=== PATIENT | female | born 1950 | race Caucasian/White ===

== ENCOUNTER → 2018-04-02 08:52 | Outpatient (CLI) | payer MEDICARE, OTHER ==
--- NOTE | 2018-04-08 11:18 | ST ---
PATIENT:ESVIN LEON MEDICAL RECORD: [id number] SEX: F LOCATION:[facility] ORDER #: ADMISSION DATE: 04/02/18 AGE OF PATIENT: 67 REFERRING PHYSICIAN: INTERPRETING PHYSICIAN: JOSE J PATEL MD DATE OF SERVICE: 04/02/2018 PROCEDURE: Nuclear stress test. INDICATION: Chest pain compatible with angina and shortness of breath. She was exercised on standard Umang protocol for 5 minutes, terminated due to achievement of maximum target heart rate response with 32 mCi of sestamibi injected at peak stress. Rest images were done previously with 11 mCi. FINDINGS: Gated SPECT reveals preserved ejection fraction at 72% with good wall motion and thickening and brightening throughout all segments. SPECT imaging Cardiolite was used as myocardial fusion agent. There is homogeneous uptake throughout all segments at rest and stress with no evidence of inducible ischemia or previous infarction. OVERALL IMPRESSION: 1. This is a normal nuclear stress test with no evidence of inducible ischemia or previous infarction. 2. Gated SPECT reveals a preserved ejection fraction at 72%. In this patient with ongoing symptomatology, the current scan does not suggest the presence of hemodynamically significant coronary artery disease. Evaluate noncardiac etiology of chest pain. TRANSINT:[id number] Voice Confirmation ID: [id number] DOCUMENT ID: [id number] JOSE J PATEL MD at 1118 CC: [id number] DICTATION DATE: 04/03/18 1230 AMMONIA BOX OPERATOR: 04/03/18 2357 DEP CLI 04/02/[address] [address]
== END | disposition home or self-care (01) ==
LOC: D.HCCARDIO 08:52
DX: R07.9 Chest pain, unspecified (principal)

== ENCOUNTER 2018-05-06 09:36 | Outpatient (CLI) | payer MEDICARE, OTHER ==
[~2018-05-06] VITALS: Ht 165.1 cm; Wt 63.6 kg
--- NOTE | ~2018-05-06 | HEMODYNAMI ---
PATIENT:ESVIN LEON MEDICAL RECORD: [id number] : 54 LOCATION:[facility] ADMISSION DATE: 05/06/18 Generatedon:05/06/201813:04 Patient name: ESVIN LEON Patient #: [id number] SSN: : 1950 Date of study: 05/06/2018 Page: Of Hemodynamic Procedure Report Patient Data Patient Demographics Procedure consent was obtained First Name: ESVIN Gender: Female Last Name: CAROLYN : 1950 Middle Initial: H Age: 67 year(s) Patient #: [id number] Race: Unknown Additional ID: [id number] Contact details [address]: [address] [place] [address] State: [place] City: [place] Zip code: [address] Past Medical History Allergies Allergen Reaction Date Comments Reported Other allergy 05/06/2018 Clindamycin Admission Admission Data Admission Date: 05/06/2018 Admission Time: 9:36 Procedure Procedure Types Cath Procedure Diagnostic Procedure LHC LHC w/Coronaries FFR/IVUS Intra-Coronary IVUS Initial Sedation Charges Moderate Sedation up to 15 minutes PCI Procedure Coronary Stent Coronary Stent Initial Procedure Description Procedure Date Procedure Date: 05/06/2018 Procedure Start Time: 12:49 Procedure End Time: 13:04 Procedure Staff Name Function Loy Acosta MD Performing Physician Aleshia Marie RT Monitor Gonzalo Daugherty RN Nurse Lynn Oswald RT Scrub Procedure Data Cath Procedure Fluoroscopy Diagnostic fluoroscopy Total fluoroscopy Time: 3 time: 3 min min Diagnostic fluoroscopy Total fluoroscopy dose: 305 dose: 305 mGy mGy Contrast Material Contrast Material Type Amount (ml) Isovue 300 74 Entry Location Entry Primary Successful Side Size Upsize Upsize Entry Closure Smith ccessful Closure Location (Fr) 1 (Fr) 2 (Fr) Remarks Device Remarks Radial Right 6 Fr Mechanical artery Short Compression Estimated blood loss: 10 ml Diagnostic catheters Device Type Used For End Catheter Placement DIAGNOSTIC Bob White 110cm 5 LV Angiography Fr catheter ([id number]) DIAGNOSTIC Bob White 110cm 5 Left Coronary Fr catheter (394155) Angiography DIAGNOSTIC Bob White 110cm 5 Right Coronary Fr catheter (589842) Angiography Procedure Complications No complications Procedure Medications Medication Administration Route Dosage 0.9% NaCl I.V. 100 ml/hr Oxygen etCO2 Nasal cannula 2 l/min Heparin Flush Bag added to field 2 bags (1000units/500ml NS) Lidocaine 2% added to field 20 Radial Cocktail added to field 1 syringe (Verapomil 2mg/Nitro 400mcg/Heparin 1500units) Zofran I.V. 4 mg Versed I.V. 2 mg Fentanyl I.V. 100 mcg Versed I.V. 2 mg Fentanyl I.V. 100 mcg Versed I.V. 1 mg Radial Cocktail I.A. 1 syringe (Verapomil 2mg/Nitro 400mcg/Heparin 1500units) Heparin Bolus I.V. 4000 units Integrilin (Bolus I.V. 5.6 ml 2mg/ml) Integrilin (Bolus wasted 4.4 ml 2mg/ml) Plavix P.O. 600 mg Hemodynamics Rest Heart Rate: 71 (bpm) Snapshots Pre Cath Intra NCS Post Cath Vital Signs Time Heart Resp SPO2 etCO2 NIBP (mmHg) Rhythm Pain Sedation Rate (ipm) (%) (mmHg) Status Level (bpm) 12:22:53 65 11 100 37.1 143/74(111) NSR 0 (11) 10(A) , No pain 12:27:05 67 29 98 34.1 131/72(90) NSR 0 (11) 10(A) , No pain 12:31:15 61 29 95 28.1 116/70(87) NSR 0 (11) 10(A) , No pain 12:35:19 59 58 96 31.8 121/66(82) NSR 0 (11) 10(A) , No pain 12:39:32 59 15 97 36.4 121/70(85) NSR 0 (11) 10(A) , No pain 12:43:40 59 14 96 42.5 116/60(79) NSR 0 (11) 10(A) , No pain 12:47:48 71 13 94 34.1 105/54(79) NSR 0 (11) 10(A) , No pain 12:51:58 64 45 92 74/42(60) NSR 0 (11) 9(A) , No pain 12:55:53 69 13 92 44 86/49(71) NSR 0 (11) 9(A) , No pain 12:59:51 66 21 94 12.8 103/59(77) NSR 0 (11) 10(A) , No pain 13:03:55 64 19 93 41.7 97/53(71) NSR 0 (11) 10(A) , No pain Medications Time Medication Route Dose Verified Delivered Reason Not es Effectiveness by by 12:24:40 0.9% NaCl I.V. 100 Gonzalo Gonzalo Per physician ml/hr Dat Daugherty RN RN 12:24:52 Oxygen etCO2 2 l/min Gonzalo Gonzalo for low 02 sats Nasal Lorigan Dat cannula RN RN 12:25:05 Heparin Flush added 2 bags Gonzalo Gonzalo used for Bag to Lorigan Dat procedure (1000units/500ml field RN RN NS) 12:25:15 Lidocaine 2% added 20ml Gonzalo Gonzalo for local to vial Lorigan Lorleni anesthetic RN RN 12:25:25 Radial Cocktail added 1 Gonzalo Gonzalo used for (Verapomil to syringe Lorigan Lorigan procedure 2mg/Nitro field RN RN 400mcg/Heparin 1500units) 12:25:41 Zofran I.V. 4 mg Gonzalo Gonzalo for nausea Dat Daugherty RN RN 12:43:10 Versed I.V. 2 mg Gonzalo Gonzalo for sedation Dat Daugherty RN RN 12:43:19 Fentanyl I.V. 100 mcg Gonzalo Gonzalo for sedation Dat Daugherty RN RN 12:47:22 Versed I.V. 2 mg Gonzalo Gonzalo for sedation Dat Daugherty RN RN 12:47:29 Fentanyl I.V. 100 mcg Gonzalo Gonzalo for sedation Dat Daugherty RN RN 12:49:06 Versed I.V. 1 mg Gonzalo Gonzalo for sedation Dat Daugherty RN RN 12:50:24 Radial Cocktail I.A. 1 Gonzalo Loy for (Verapomil syringe Dat Acosta MD vasodilation 2mg/Nitro RN 400mcg/Heparin 1500units) 12:57:43 Heparin Bolus I.V. 4000 Gonzalo Gonzalo for units Lorigan Dat anticoagulation RN RN 12:58:01 Integrilin I.V. 5.6 ml Gonzalo Gonzalo for (Bolus 2mg/ml) Dat Daugherty antiplatelet RN RN therapy 12:58:11 Integrilin wasted 4.4 ml Gonzalo Gonzalo to sharp's (Bolus 2mg/ml) Dat Daugherty RN RN 13:01:51 Plavix P.O. 600 mg Gonzalo Gonzalo for Dat Daugherty antiplatelet RN RN therapy Procedure Log Time Note 11:55:07 Time tracking: Regular hours (M-F 7:00 - 5:00) 11:55:10 Plan of Care:Hemodynamics will remain stable., Cardiac rhythm will remain stable., Comfort level will be maintained., Respiratory function will remain adequate., Patient/ family verbilizes understanding of procedure., Procedure tolerated without complication., Recovers from procedure without complications.. 12:08:25 Gonzalo Daugherty RN sent for patient. Start room use. 12:09:46 Patient received from Pre/Post Procedure Room to CCL 2 Alert and oriented. Tansferred to table in Supine position. 12:09:47 Warm blankets applied, and austyn hugger turned on for patient comfort. 12:09:48 Correct patient and procedure confirmed by team. 12:09:49 Signed procedure consent form obtained from patient. 12:09:49 ECG and BP/O2 sat monitors applied to patient. 12:09:50 Full Disclosure recording started 12:21:42 Vital chart was started 12:21:44 Rhythm: sinus rhythm 12:21:57 H&P Date Dictated: 05/05/2018 Within 30 days and on chart., H&P Addendum completed by physician on day of procedure. (MUST COMPLETE FOR ALL OUTPATIENTS). 12:21:58 Pre-procedure instructions explained to patient. 12:21:58 Pre-op teaching completed and patient verbalized understanding. 12:22:00 Family in patients room. 12:22:01 Patient NPO since Midnight. 12:22:19 Patient allergic to Other allergyClindamycin 12:22:21 Is the patient allergic to Iodine/contrast media? No. 12:22:22 Is patient on blood thinner?No 12:22:24 Patient diabetic? No. 12:22:27 Previous problem with sedation/anesthesia? No ? 12:22:37 Snore? No 12:22:38 Sleep apnea? Yes 12:22:45 Deviated septum? No 12:22:46 Opens mouth fully? Yes 12:22:47 Sticks out tongue? Yes 12:22:50 Airway obstruction? No ? 12:22:52 Dentures? No ? 12:22:59 Pre procedure: right dorsailis pedis pulse 2+ Normal; easily identifiable; not easily obliterated 12:23:01 Pre procedure: left dorsailis pedis pulse 2+ Normal; easily identifiable; not easily obliterated 12:23:03 Modified Evgeny's test Ulnar < 7 seconds 12:23:05 Patient pain scale 0/10 ?. 12:23:12 IV patent on arrival in left forearm with 0.9% NaCl at [facility]. 12:23:14 Lab results completed and on chart. 12:23:17 Right Radial & Right Groin area was prepped with chlora-prep and draped in sterile fashion 12:23:18 Alarms reviewed by R. N. 12:23:19 Sharps counted by scrub and verified by R.N. 12:23:21 Use device set Radial Dx or PCI 12:23:22 ACIST Syringe (77794) opened to sterile field. 12:23:22 Medline Cath Pack ([id number]) opened to sterile field. 12:23:23 Bag Decanter (2002) opened to sterile field. 12:23:23 DIAGNOSTIC WIRE .035 260cm J wire (408101) opened to sterile field. 12:23:24 ACIST Hand Control (25008) opened to sterile field. 12:23:24 ACIST Manifold (36165) opened to sterile field. 12:23:25 Tegaderm 4 x 4 (1626W) opened to sterile field. 12:23:25 MBrace Wrist Support (033532902) opened to sterile field. 12:23:26 SHEATH 6FR Slender (67-1060) opened to sterile field. 12:23:53 Baseline sample Acquired. 12:24:40 0.9% NaCl 100 ml/hr I.V. was administered by Gonzalo Daugherty RN; Per physician; 12:24:52 Oxygen 2 l/min etCO2 Nasal cannula was administered by Gonzalo Daugherty RN; for low 02 sats; 12:25:05 Heparin Flush Bag (1000units/500ml NS) 2 bags added to field was administered by Gonzalo Daugherty RN; used for procedure; 12::15 Lidocaine 2% 20ml vial added to field was administered by Gonzalo Daugherty RN; for local anesthetic; 12::25 Radial Cocktail (Verapomil 2mg/Nitro 400mcg/Heparin 1500units) 1 syringe added to field was administered by Gonzalo Daugherty RN; used for procedure; 12::41 Zofran 4 mg I.V. was administered by Gonzalo Daugherty RN; for nausea; 12::51 Zero performed for pressure channel P1 12:38:19 Vital chart was stopped 12::22 Vital chart was started 12:39:38 Baseline sample Acquired. 12::40 Final Timeout: patient, procedure, and site verified with staff and physician. All members of the team are in agreement. 12:41:44 Right Radial site verified by team. 12:41:48 Maximum allowable Isovue 300 dose 300ml. Physician notified. (300ml for normal creatinines. For patients with creatinine of 1.7 or higher multiply weight(kg) x 5 divided by creatinine.) 12:41:54 Fire Safety Assessment: A--An alcohol-based skin anteseptic being used preoperatively., C--Open oxygen or nitrous oxide is being used., D--An ESU, laser, or fiber-optic light is being used. 12:41:57 Physical assessment completed. ASA score P 2 - A patient with mild systemic disease as per Loy Acosta MD. 12:42:00 Sedation plan: IV Moderate Sedation Medication:Versed, Fentanyl 12:43:10 Versed 2 mg I.V. was administered by Gonzalo Daugherty RN; for sedation; 12:43:19 Fentanyl 100 mcg I.V. was administered by Gonzalo Daugherty RN; for sedation; 12:47:22 Versed 2 mg I.V. was administered by Gonzalo Daugherty RN; for sedation; 12:47:29 Fentanyl 100 mcg I.V. was administered by Gonzalo Daugherty RN; for sedation; 12:48:47 Procedure started. 12:49:06 Versed 1 mg I.V. was administered by Gonzalo Daugherty RN; for sedation; 12:49:28 Local anesthetic to right radial artery with Lidocaine 2% by Loy Acosta MD.INITIAL ACCESS ONLY 12:49:38 A 6 Fr Short sheath was inserted into the Right Radial artery 12:50:05 A DIAGNOSTIC Bob White 110cm 5 Fr catheter (816019) was advanced over the wire and used for LV Angiography. 12:50:24 Radial Cocktail (Verapomil 2mg/Nitro 400mcg/Heparin 1500units) 1 syringe I.A. was administered by Loy Acosta MD; for vasodilation; 12:50:51 LV gram done using NICHOLSON 12:50:55 Injector settings: Ml/sec: 5, Volume: 15, 12:51:02 EF : 70 % 12:51:11 A DIAGNOSTIC Bob White 110cm 5 Fr catheter (746363) was advanced over the wire and used for Left Coronary Angiography. 12:52:04 A DIAGNOSTIC Bob White 110cm 5 Fr catheter (962931) was advanced over the wire and used for Right Coronary Angiography. 12:52:08 Catheter removed. 12:52:12 Use device set [facility] PCI 12:52:19 INFLATOR Merit BasixCompak (KV1215) opened to sterile field. 12:52:32 CHOICE PT Extra Support 182cm wire ([id number]) opened to sterile field. 12:52:46 Pana [place] Eagleye IVUS Catheter (48791L) opened to sterile field. 12:53:04 6 Fr EBU 3.0 guide catheter was inserted over the wire 12:54:07 GUIDE 6FR EBU 3.0 catheter ([id number]) opened to sterile field. 12:54:17 CHOICE PT ES wire advanced. 12:54:48 IVUS catheter advanced over wire. 12:54:55 IVUS pass to LAD lesion performed. 12:57:42 IVUS catheter removed over wire. 12:57:43 Heparin Bolus 4000 units I.V. was administered by Gonzalo Daugherty RN; for anticoagulation; 12:58:01 Integrilin (Bolus 2mg/ml) 5.6 ml I.V. was administered by Gonzalo Daugherty RN; for antiplatelet therapy; 12:58:11 Integrilin (Bolus 2mg/ml) 4.4 ml wasted was administered by Gonzalo Daugherty RN; to sharp's; 12:59:08 Place stent Inflation Number: 1 A INTEGRITY RX 3.0 x 22 stent ([id number]) was prepped and advanced across the Mid LAD. The stent was deployed at 13 ERIKA for 0:10 (min:sec). 12:59:27 Stent catheter was removed intact over wire. 12:59:29 Wire removed. 12:59:32 Guide catheter removed. 12:59:41 Sheath removed intact; hemostasis achieved with Mechanical Compression to the Right Radial artery. 12:59:43 Procedure ended.(Physican Out) 13:00:05 TR band inflated with 12cc of air. 13:00:16 Fluoroscopy time 03.00 minutes. 13:00:19 Fluoroscopy dose: 305 mGy 13:00:19 Flurop Dose total: 305 13:00:23 Contrast amount:Isovue 300 74ml. 13:00:24 Sharps counted by scrub and verified by R.N. 13:00:25 Insertion/operative site no bleeding no hematoma. 13:00:31 Post right radial artery:stable, clean and dry 13:00:40 Post Procedure Pulses reassessed and unchanged 13:00:43 Post-procedure physical assessment completed. ASA score P 2 - A patient with mild systemic disease as per Loy Acosta MD. 13:00:45 Post procedure rhythm: unchanged. 13:00:48 Estimated blood loss: 10 ml 13:00:49 Post procedure instruction explained to patient.Patient verbalizes understanding. 13:00:49 Patient needs reinforcement of post procedure teaching. 13:01:03 Procedure type changed to Cath procedure, Diagnostic procedure, LHC, LHC w/Coronaries, FFR/IVUS, Intra-Coronary IVUS Initial, Sedation Charges, Moderate Sedation up to 15 minutes, PCI procedure, Coronary Stent, Coronary Stent Initial 13:01:08 Procedure Complication : No complications 13:01:12 See physician's report for complete and final results. 13:01:24 TR BAND Standard ([id number]) opened to sterile field. 13:01:45 Procedure and supply charges have been captured, reviewed, submitted and are correct. 13:01:50 Report given to Pre/Post Procedure Room. 13:01:51 Plavix 600 mg P.O. was administered by Gonzalo Daugherty RN; for antiplatelet therapy; 13:04:06 Patient transfered to Pre/Post Procedure Room with Stretcher. 13:04:14 Procedure ended. 13:04:14 Full Disclosure recording stopped 13:04:18 End room use (Document Last) 13:04:34 Vital chart was stopped Intervention Summary Intervention Notes Time ActionType Lesion and Equipment Action# Pressure Duration Attributes Used 12:59:08 Place stent Mid LAD INTEGRITY RX 1 13 00:10 3.0 x 22 stent ([id number]) Device Usage Item Name Manufacture Quantity Catalog Number Hospital Part Current Mini mal Lot# / Charge Number Stock Stock Serial# Code ACIST Acist 1 32826 321855 984772 632222 20 Syringe Medical (08380) Systems Inc Medline Cath Medline 1 [id number] 854009 64939 170924 5 Pack ([id number]) Bag Decanter Microtek 1 2001S 870058 00933 058440 5 (2001S) Medical Inc. DIAGNOSTIC St Giancarlo 1 571404 022386 183447 045029 30 WIRE .035 260cm J wire (798629) ACIST Hand Acist 1 62793 376035 329186 979428 5 Control Medical (45765) Systems Inc ACIST Acist 1 53172 107785 370788 179562 5 Manifold Medical (31581) Systems Inc Tegaderm 4 x 3M 1 1626W 884771 138907 083174 5 4 (1626W) MBrace Wrist Advanced 1 140-0250-00 020231 09233 186124 5 Support Vascular (245304370) Dynamics SHEATH 6FR Terumo 1 [id number] 140344 406522 709334 5 Slender (80-1060) DIAGNOSTIC Terumo 1 40-1595 565824 930277 423664 5 Bob White 110cm 5 Fr catheter (047097) INFLATOR [facility] 1 PI1486 803227 554897 267725 15 [facility] Medical BasixCompak (YD6984) CHOICE PT [place] 1 [id number] 170269 637638 706016 5 Extra Scientific Support 182cm wire (6837427V9) Pana Pana 1 73662O 404087 218903 516363 8 [place] Eagleye IVUS Catheter (32656K) GUIDE 6FR Medtronic 1 [id number] 622116 55934 001088 0 EBU 3.0 catheter (ET3QWG09) INTEGRITY RX Medtronic 1 [id number] 949388 526386 831315 5 [id number] 3.0 x 22 stent ([id number]) TR BAND Terumo 1 [id number] 911300 520698 122665 40 Standard ([id number]) Signature Audit Bentley Stage Time Signature Unsigned Intra-Procedure 05/06/2018 Aleshia 1:04:30 PM Counts RT(R) Signatures Monitor : Aleshia Signature : Counts RT Date : Time : [address] [place] [address]
[2018-05-06] MEDS ORDERED: OMEPRAZOLE20 M1 PO (09:58)
[2018-05-06] MEDS ORDERED: CATAPRES0.1 MG PO (09:58)
[2018-05-06] MEDS ORDERED: PRISTIQ50 MG PO (09:58)
[2018-05-06] MEDS ORDERED: IMITREX100 MG PO (09:59)
[2018-05-06] MEDS ORDERED: AMBIEN10 MG PO (10:00)
[2018-05-06] MEDS ORDERED: XANAX0.5 MG PO (10:00)
[2018-05-06] MEDS ORDERED: DISALCID750 MG PO (10:00)
[2018-05-06] MEDS ORDERED: ROBAXIN500 MG PO (10:01)
[2018-05-06] MEDS ORDERED: COZAAR100 MG PO (10:01)
[2018-05-06] MEDS ORDERED: FLUTICASONE PRO16 GM NASAL (10:01)
[2018-05-06] MEDS ORDERED: SYSTANE NIGHTT3.5 GM EACH EYE (10:02)
[2018-05-06] MEDS ORDERED: PRESERVISION PO (10:02)
[2018-05-06] MEDS ORDERED: METOPROLOL TART50 MG PO (10:03)
[2018-05-06 10:14] VITALS: BP 152/78; Ht 165.1 cm; Wt 63.6 kg
[2018-05-06 10:18] LABS: BASOPHILS 0.2 % (0-2); HEMATOCRIT 42.3 % (36.0-48.0); HEMOGLOBIN 14.3 g/dL (12-16); IMMATURE GRANULOCYTES 0.1 % (0-5); LYMPHOCYTES 22.4 % (15-50); MCH 30.7 pg (26.0-34.0); MCHC 33.8 g/dL (31.0-37.0); MCV 90.8 fL (80.0-100.0); MEAN PLATELET VOLUME 9.1 fL (7.4-10.4); MONOCYTES 6.4 % (2-11); NEUTROPHILS 69.9 % (40-80); PLATELET COUNT 299 10x3/uL (130-400); RBC 4.66 10x6/uL (4.00-5.40); RDW 13.6 % (11.5-14.5); WBC 8.9 10x3/uL (4.8-10.8)
[2018-05-06 10:34] LABS: CALC OSMOLALITY 282 mosm/kg (275-300); CALCIUM 8.6 mg/dL (8.5-10.1); CARBON DIOXIDE 26.1 mmol/L (21.0-32.0); CHLORIDE - SERUM 103 mmol/L (98-107); CREATININE - SERUM 0.8 mg/dL (0.6-1.3); GLUCOSE 89 mg/dL (74-106); POTASSIUM - SERUM 3.8 mmol/L (3.5-5.1); SODIUM 142 mmol/L (136-145); UREA NITROGEN 14 mg/dL (7-18); eGFR NON AFRICAN AMERICAN 76 mL/min (90-120)
[2018-05-06] MEDS ORDERED: PLAVIX75 MG PO (13:27)
--- NOTE | 2018-05-06 13:30 | NUR ---
2L NC, NO RESP DISTRESS. RIGHT WRIST TR BAND CDI, NO BLEEDING OR HEMATOMA NOTED. NO C/O PAIN OR NAUSEA. VSS. FAMILY AT BEDSIDE, CALL LIGHT WITHIN REACH.
--- NOTE | 2018-05-06 14:00 | NUR ---
RESTING QUIETLY WITH EYES CLOSED. RIGHT WRIST TR BAND CDI, NO BLEEDING OR HEMATOMA NOTED. DENIES ANY NEEDS. VSS. WILL CONTINUE TO MONITOR.
--- NOTE | 2018-05-06 14:15 | NUR ---
RIGHT WRIST TR BAND CDI, NO BLEEDING OR HEMATOMA NOTED. NO C/O PAIN OR NAUSEA. VSS. CALL LIGHT WITHIN REACH.
--- NOTE | 2018-05-06 14:45 | NUR ---
CONTINUES TO REST COMFORTABLY WITH NO C/O. RIGHT WRIST TR BAND CDI, NO BLEEDING OR HEMATOMA NOTED. NO NEEDS VOICED. VSS. WILL CONTINUE TO MONITOR.
--- NOTE | 2018-05-06 15:15 | NUR ---
RIGHT WRIST TR BAND CDI, NO BLEEDING OR HEMATOMA NOTED. NO C/O PAIN OR NAUSEA. VSS. CALL LIGHT WITHIN REACH.
--- NOTE | 2018-05-06 16:10 | NUR ---
3CC OF AIR REMOVED FROM TR BAND WITH NO BLEEDING NOTED. SIPPING ON DRINK AND EATING SANDWICH WITH NO C/O NAUSEA. VSS. WILL CONTINUE TO MONITOR.
--- NOTE | 2018-05-06 16:22 | NUR ---
3CC OF AIR REMOVED FROM TR BAND WITH NO BLEEDING NOTED. DISCHARGE INSTRUCTIONS ALONG WITH PLAVIX PRESCRIPTION GIVEN, VERBALIZED UNDERSTANDING.
--- NOTE | 2018-05-06 16:38 | NUR ---
REMAINING AIR REMOVED FROM TR BAND WITH NO BLEEDING NOTED. DRESSING PLACED TO SITE. TO BEDSIDE TO GET DRESSED.
--- NOTE | 2018-05-06 16:44 | NUR ---
PLAVIX PRESCRIPTION CALLED INTO [facility]. TAKEN OUT VIA WHEELCHAIR BY CATH GLASS NOVELTY MAKER. LEFT FACILITY WITH FAMILY AND ALL PERSONAL BELONGINGS.
--- NOTE | 2018-05-09 15:03 | OP ---
PATIENT NAME: ESVIN LEON MEDICAL RECORD: [id number] :54 LOCATION:[facility] ADMISSION DATE: SURGEON: JOSE J PATEL MD DATE OF OPERATION: 05/06/2018 PROCEDURES: 1. PTCA stent LAD. 2. Intravascular ultrasound. 3. Left heart catheterization. 4. Selective coronary angiography. 5. Left ventriculogram. INDICATION: Angina and coronary artery disease. PROCEDURE IN DETAIL: After informed consent was obtained and after a detailed description of risks, benefits as well as alternative therapies, the patient elected to proceed with angiogram and angioplasty. The right radial area was prepped and draped in normal sterile fashion. Right radial artery was cannulated via modified Seldinger technique with placement of 6-Malagasy sheath. All catheters exchanged through this sheath. FINDINGS: Left ventriculogram performed in standard 30-degree NICHOLSON view, reveals good cardiac wall motion throughout all segments. Overall ejection fraction estimated 60%. SELECTIVE CORONARY ANGIOGRAPHY: 1. Left main showed no significant angiographic disease. 2. Left anterior descending has 75% stenosis confirmed by intravascular ultrasound in the mid vessel. 3. Left circumflex has moderate irregularities, but no flow-limiting stenosis. 4. Right coronary artery has moderate irregularities, but no flow-limiting stenosis. PTCA STENT OF THE LAD: The stent used was a 3.0 x 22 mm Integrity. Result was 0% residual stenosis. OVERALL IMPRESSION: Successful percutaneous transluminal angioplasty stent of the left anterior descending going from 75% initial stenosis to 0% residual. TRANSINT:[id number] Voice Confirmation ID: [id number] DOCUMENT ID: [id number] JOSE J PATEL MD at 1503 CC: [id number] DICTATION DATE: 05/06/18 1303 SCREW MACHINE HAND: 05/06/18 1413 DEP CLI 05/06/18 [place] [address]
== END 2018-05-06 16:44 | disposition home or self-care (01) ==
LOC: D.CATH 09:36
PROVIDERS: ATTEND Internal Medicine Interventional Cardiology
DX: I25.119 Atherosclerotic heart disease of native coronary artery with unspecified angina pectoris (principal); Z01.812 Encounter for preprocedural laboratory examination

== ENCOUNTER 2019-05-11 09:33 | Outpatient (CLI) | payer MEDICARE, OTHER ==
[~2019-05-11] VITALS: Ht 165.1 cm; Wt 67.3 kg
--- NOTE | ~2019-05-11 | HEMODYNAMI ---
PATIENT:JOSE A LEON MEDICAL RECORD: [id number] : 54 LOCATION:[facility] ADMISSION DATE: 05/11/19 Generatedon:05/11/201913:02 Patient name: JOSE A LEON Patient #: [id number] SSN: [id number] : 1950 Date of study: 05/11/2019 Page: Of Hemodynamic Procedure Report Patient Data Patient Demographics First Name: JOSE A Gender: Female Last Name: CAROLYN : 1950 [facility] Initial: H Age: 68 year(s) Patient #: [id number] Race: Unknown SSN: [id number] Additional ID: [id number] Contact details [address]: [address] [place] [address] State: [place] City: [place] Zip code: [address] Past Medical History Allergies Allergen Reaction Date Comments Reported Other allergy 05/06/2018 Clindamycin Other allergy 05/11/2019 Clindamycin Admission Admission Data Admission Date: 05/11/2019 Admission Time: 9:33 Arrival Date: 05/11/2019 Arrival Time: 0:00 Admit Source: Other Insurance Payor: Medicare [facility] #: [id number] Height (in.): 66 BSA: 1.76 (m2) Height (cm.): 167.64 BMI: 24.05 (kg/m2) Weight (lbs.): 149 Weight (kg.): 67.59 Lab Results Lab Result Date: 05/11/2019 Lab Result Time: 0:00 Biochemistry Name Units Result Min Max BUN mg/dl 14 --(--*-)-- 7 18 Creatinine mg/dl 0.7 --(*---)-- 0.6 1.3 CBC Name Units Result Min Max Hemoglobin g/dl 12.8 -*(----)-- 13.5 17.5 Procedure Procedure Types Cath Procedure Diagnostic Procedure LHC LHC w/Coronaries Sedation Charges Moderate Sedation up to 15 minutes Procedure Description Procedure Date Procedure Date: 05/11/2019 Procedure Start Time: 12:41 Procedure End Time: 13:00 Procedure Staff Name Function Loy Acosta MD Performing Physician Lynn Oswald RT Monitor Nhi West RT Scrub Juan C Lee RN Club Car Attendant Procedure Data Cath Procedure Fluoroscopy Diagnostic fluoroscopy Total fluoroscopy Time: 1.1 time: 1.1 min min Diagnostic fluoroscopy Total fluoroscopy dose: 270 dose: 270 mGy mGy Contrast Material Contrast Material Type Amount (ml) Isovue 370 53 Entry Location Entry Primary Successful Side Size Upsize Upsize Entry Closure Smith ccessful Closure Location (Fr) 1 (Fr) 2 (Fr) Remarks Device Remarks Radial Right 6 Fr Mechanical artery Short Compression Estimated blood loss: 5 ml Diagnostic catheters Device Type Used For End Catheter Placement DIAGNOSTIC Clifton 110cm 5 Ventriculography Fr catheter ([id number]) DIAGNOSTIC Clifton 110cm 5 Procedure Fr catheter ([id number]) Procedure Complications No complications Procedure Medications Medication Administration Route Dosage Oxygen etCO2 Nasal cannula 2 l/min Lidocaine 2% added to field 20 Heparin Flush Bag added to field 2 bags (1000units/500ml NS) 0.9% NaCl I.V. 100 ml/hr Radial Cocktail I.A. 1 syringe (Verapamil 2mg/Nitro 400mcg/Heparin 1500units) Versed I.V. 2 mg Fentanyl I.V. 50 mcg Versed I.V. 2 mg Fentanyl I.V. 50 mcg Zofran I.V. 4 mg Versed I.V. 2 mg Fentanyl I.V. 50 mcg Hemodynamics Rest BSA: 1.76 (m2) HGB: 12.8 (g/dl) O2 Consumption: Estimated: 153.68 (ml/min) O2 Co nsumption indexed: Estimated:87.32 (ml/min/m) Heart Rate: 55 (bpm) Snapshots Pre Cath Intra NCS Post Cath Vital Signs Time Heart Resp SPO2 etCO2 NIBP Rhythm Pain Sedation Rate (ipm) (%) (mmHg) (mmHg) Status Level (bpm) 12:33:06 59 27 97 27.2 121/73(86) NSR 0 (11) 10(A) , No pain 12:37:18 54 19 93 26.4 113/62(74) NSR 0 (11) 10(A) , No pain 12:41:28 51 12 94 29.4 109/58(79) NSR 0 (11) 10(A) , No pain 12:45:38 56 15 93 34.7 92/51(69) NSR 0 (11) 10(A) , No pain 12:49:39 57 15 95 37.7 110/58(88) NSR 0 (11) 9(A) , No pain 12:53:48 57 14 97 39.2 112/63(77) NSR 0 (11) 9(A) , No pain 12:57:57 54 14 97 37.7 104/55(75) NSR 0 (11) 10(A) , No pain Medications Time Medication Route Dose Verified Delivered Reason Notes Effectiveness by by 12:32:07 Oxygen etCO2 2 l/min Loy Granado used for Nasal Karla Acosta MD procedure cannula 12:32:31 Lidocaine 2% added 20ml Loydez Wickrey for local to vial Karla Acosta MD anesthetic field 12:32:37 Heparin Flush added 2 bags Loy Granado used for Bag to Karla Acosta MD procedure (1000units/500ml field NS) 12:32:45 0.9% NaCl I.V. 100 Loy Irizarry Per ml/hr Karla Lee RN physician 12:38:21 Zofran I.V. 4 mg Loy Irizarry Per Karla Lee RN physician 12:40:29 Versed I.V. 2 mg Loy Buffie for sedation Karla Lee RN 12:40:35 Fentanyl I.V. 50 mcg Loy Osullivanie for sedation Karla Lee RN 12:41:21 Radial Cocktail I.A. 1 Loy Granado for (Verapamil syringe Karla Acosta MD vasodilation 2mg/Nitro 400mcg/Heparin 1500units) 12:44:02 Versed I.V. 2 mg Lyo Osullivanie for sedation Karla Lee RN 12:44:08 Fentanyl I.V. 50 mcg Loy Osullivanie for sedation Karla Lee RN 12:50:49 Versed I.V. 2 mg Loy Buffie for sedation Karla Lee RN 12:50:55 Fentanyl I.V. 50 mcg Loy Osullivanie for sedation Karla Lee RN Procedure Log Time Note 12:11:23 Arrival Date: 05/11/2019 12:00:00 AM 12:11:48 Admit Source: Other 12:11:57 Insurance Payor : Medicare 12:12:09 Patient Height : 66 inches 12:12:19 Patient Weight : 149 lbs 12:18:09 Lab Result : Creatinine 0.7 mg/dl 12:18:09 Lab Result : BUN 14 mg/dl 12:18:09 Lab Result : Hemoglobin 12.8 g/dl 12:31:58 Vital chart was started 12:32:07 Oxygen 2 l/min etCO2 Nasal cannula was administered by Loy Acosta MD; used for procedure; Verbal order read back and verified. 12:32:31 Lidocaine 2% 20ml vial added to field was administered by Loy Acosta MD; for local anesthetic; Verbal order read back and verified. 12:32:37 Heparin Flush Bag (1000units/500ml NS) 2 bags added to field was administered by Loy Acosta MD; used for procedure; Verbal order read back and verified. 12:32:45 0.9% NaCl 100 ml/hr I.V. was administered by Juan C Lee RN; Per physician; Verbal order read back and verified. 12:37:17 Procedure Status Elective Heart Cath (OP). 12:37:21 Nhi West RT(R) (CV) sent for patient. Start room use. 12:37:22 Time tracking: Regular hours (M-F 7:00 - 5:00) 12:37:27 Plan of Care:Hemodynamics will remain stable., Cardiac rhythm will remain stable., Comfort level will be maintained., Respiratory function will remain adequate., Patient/ family verbilizes understanding of procedure., Procedure tolerated without complication., Recovers from procedure without complications.. 12:37:32 Patient received from Pre/Post Procedure Room to CCL 2 Alert and oriented. Tansferred to table in Supine position. 12:37:34 Warm blankets applied, and austyn hugger turned on for patient comfort. 12:37:35 Correct patient and procedure confirmed by team. 12:37:37 ECG and BP/O2 sat monitors applied to patient. 12:37:38 Baseline sample Acquired. 12:37:42 Rhythm: sinus rhythm 12:37:44 Full Disclosure recording started 12:37:55 H&P Date Dictated: 04/30/2019 Within 30 days and on chart., H&P Addendum completed by physician on day of procedure. (MUST COMPLETE FOR ALL OUTPATIENTS). 12:37:57 Pre-procedure instructions explained to patient. 12:37:59 Family in waiting room. 12:38:01 Patient NPO since Midnight. 12:38:19 Patient allergic to Other allergyClindamycin 12:38:21 Zofran 4 mg I.V. was administered by Juan C Lee RN; Per physician; Verbal order read back and verified. 12:38:24 Is the patient allergic to Iodine/contrast media? No. 12:38:26 Was the patient premedicated? Yes 12:38:28 Is patient on blood thinner?No 12:38:30 Patient diabetic? No. 12:38:43 Previous problem with sedation/anesthesia? Yes Nausea 12:38:44 Snore? Yes 12:38:46 Sleep apnea? Yes 12:39:22 Dentures? No ? 12:39:25 Patient pain scale 0/10 ?. 12:39:32 IV patent on arrival in left forearm with 0.9% NaCl at [facility]. 12:39:35 Lab results completed and on chart. 12:39:42 Right Radial & Right Groin area was prepped with chlora-prep and draped in sterile fashion 12:39:43 Alarms reviewed by R. N. 12:39:44 Sharps counted by scrub and verified by R.N. 12:39:45 Physician arrived 12:39:46 --------ALL STOP TIME OUT------ 12:39:48 Final Timeout: patient, procedure, and site verified with staff and physician. All members of the team are in agreement. 12:39:50 Right Radial & Right Groin site verified by team. 12:39:55 Physical assessment completed. ASA score P 2 - A patient with mild systemic disease as per Loy Acosta MD. 12:39:59 2) 60-89 Mildly reduced kidney function, and other findings (as for stage 1) point to kidney disease. 12:40:29 Versed 2 mg I.V. was administered by Juan C Lee RN; for sedation; Verbal order read back and verified. 12:40:29 Maximum allowable contrast dose (3.7 X eGFR X 0.75)246 ml. 12:40:33 Sedation plan: IV Moderate Sedation Medication:Versed, Fentanyl 12:40:35 Fentanyl 50 mcg I.V. was administered by Juan C Lee RN; for sedation; Verbal order read back and verified. 12:40:39 Use device set Radial Dx or PCI 12:40:44 Procedure started. 12:41:21 Radial Cocktail (Verapamil 2mg/Nitro 400mcg/Heparin 1500units) 1 syringe I.A. was administered by Loy Acosta MD; for vasodilation; Verbal order read back and verified. 12:41:23 Local anesthetic to right radial artery with Lidocaine 2% by Loy Acosta MD.INITIAL ACCESS ONLY 12:41:35 A 6 Fr Short sheath was inserted into the Right Radial artery 12:42:33 ACIST Syringe (68659) opened to sterile field. 12:42:33 Medline Cath Pack ([id number]) opened to sterile field. 12:42:34 Bag Decanter (2002S) opened to sterile field. 12:42:34 ACIST Hand Control (10212) opened to sterile field. 12:42:35 ACIST Manifold (91004) opened to sterile field. 12:42:35 Tegaderm 4 x 4 (1626W) opened to sterile field. 12:42:37 MBrace Wrist Support ([id number]) opened to sterile field. 12:42:41 EMERALD Guide Wire (977-018) opened to sterile field. 12:42:41 SHEATH 6FR RAIN (8239222) opened to sterile field. 12:42:48 A DIAGNOSTIC Clifton 110cm 5 Fr catheter (724409) was advanced over the wire and used for Ventriculography. 12:42:56 LV angiography performed. 12:44:02 Versed 2 mg I.V. was administered by Juan C Lee RN; for sedation; Verbal order read back and verified. 12:44:08 Fentanyl 50 mcg I.V. was administered by Juan C Lee RN; for sedation; Verbal order read back and verified. 12:45:37 LV gram done using NICHOLSON 12:45:43 EF : 60 % 12:50:28 Had to restart room2. 12:50:49 Versed 2 mg I.V. was administered by Juan C Lee RN; for sedation; Verbal order read back and verified. 12:50:55 Fentanyl 50 mcg I.V. was administered by Juan C Lee RN; for sedation; Verbal order read back and verified. 12:51:48 Catheter removed. 12:52:05 A DIAGNOSTIC Clifton 110cm 5 Fr catheter (129550) was advanced over the wire and used for Procedure. 12:52:31 LCA angiography performed. 12:54:06 RCA angiography performed. 12:54:09 Catheter removed. 12:55:36 Sheath removed intact; hemostasis achieved with Mechanical Compression to the Right Radial artery. 12:56:58 Procedure ended.(Physican Out) 12:57:32 Fluoroscopy time 01.10 minutes. 12:57:36 Fluoroscopy dose: 270 mGy 12:57:36 Flurop Dose total: 270 12:57:41 Dose Area Product 45838 mGy/cm. 12:58:06 Contrast amount:Isovue 370 53ml. 12:58:08 Maximum allowable dose exceeded? No. 12:58:09 Sharps counted by scrub and verified by R.N. 12:58:13 Insertion/operative site no bleeding no hematoma. 12:58:20 Post right radial artery:stable 12:58:34 Post-procedure physical assessment completed. ASA score P 3 - A patient with severe systemic disease as per Loy Acosta MD. 12:58:38 Post procedure rhythm: unchanged. 12:58:44 Estimated blood loss: 5 ml 12:58:45 Post procedure instruction explained to patient.Patient verbalizes understanding. 12:58:53 Procedure type changed to Cath procedure, Diagnostic procedure, LHC, C w/Coronaries, Sedation Charges, Moderate Sedation up to 15 minutes 12:58:54 Procedure and supply charges have been captured, reviewed, submitted and are correct. 12:59:13 Procedure Complication : No complications 12:59:21 Vital chart was stopped 12:59:26 [facility] Findings: mild to moderate CAD (<70%) 12:59:48 Operative report dictated upon procedure completion. 12:59:51 See physician's report for complete and final results. 13:00:02 Report given to Pre/Post Procedure Room. 13:00:06 Patient transfered to Pre/Post Procedure Room with Stretcher. 13:00:11 Procedure ended. 13:00:11 Full Disclosure recording stopped Device Usage Item Name Manufacture Quantity Catalog Hospital Part Current Minima l Lot# / Number Charge Number Stock Stock Serial# Code ACIST Acist 1 33509 725256 [id number] [id number] 20 [id number]) Systems Inc Medline Medline 1 [id number] 80137 [id number] 5 Cath Pack ([id number]) Bag Microtek 1 2001S 030248 52570 937818 5 Decanter Medical Inc. (2001S) ACIST Hand Acist 1 43728 074071 267909 996323 5 Control Medical (92248) Systems Inc ACIST Acist 1 05608 591645 877183 224051 5 Manifold Medical (07658) Systems Inc Tegaderm 4 3M 1 1626W 043090 330005 448384 5 x 4 (1626W) MBrace Advanced 1 140-0250-00 851979 06445 403966 5 Wrist Vascular Support Dynamics ([id number]) [facility] Cardinal 1 520-054 401335 920218 594015 5 Guide [facility] (536-925) SHEATH 6FR Cardinal 1 0482436 513192 8046638 630717 5 [facility] (0067450) DIAGNOSTIC Terumo 1 95-8352 910936 043445 237952 5 Clifton 110cm 5 Fr catheter (807773) Signature Audit [place] Stage Time Signature Unsigned Intra-Procedure 05/11/2019 Lynn Oswald 1:00:29 PM RT(R); Juan C Lee RN; Loy Acosta MD Signatures Performing Physician : Signature : Loy Acosta MD Date : Time : Monitor : Lynn Oswald Signature : RT Date : Time : [facility] [address] [place], [place] [address]
[~2019-05-11 09:33] MED LIST: AMBIEN10 MG PO; CATAPRES0.1 MG PO; COZAAR100 MG PO; DISALCID750 MG PO; FLUTICASONE PRO16 GM NASAL; IMITREX100 MG PO; METOPROLOL TART50 MG PO; OMEPRAZOLE20 M1 PO; PLAVIX75 MG PO; PRESERVISION PO; PRISTIQ50 MG PO; ROBAXIN500 MG PO; SYSTANE NIGHTT3.5 GM EACH EYE; XANAX0.5 MG PO
[2019-05-11] MEDS ORDERED: SINGULAIR10 MG PO (10:13)
[2019-05-11] MEDS ORDERED: AKWA TEARS15 ML EACH EYE (10:14)
[2019-05-11] MEDS ORDERED: PRISTIQ100 MG PO (10:15)
[2019-05-11] MEDS ORDERED: PHENERGAN25 MG RC (10:15)
[2019-05-11] MEDS ORDERED: TRAZODONE HCL150 MG PO (10:17)
[2019-05-11] MEDS ORDERED: CO Q-10200 MG PO (10:18)
[2019-05-11] MEDS ORDERED: DILTIAZEM 24HR240 M4 PO (10:20)
[2019-05-11] MEDS ORDERED: BAYER CHEWABLE81 MG PO (10:20)
[2019-05-11] MEDS ORDERED: IMITREX100 MG PO (10:21)
[2019-05-11] MEDS ORDERED: TOPROL XL50 MG PO (10:22)
[2019-05-11] MEDS ORDERED: CRESTOR10 MG PO (10:22)
[2019-05-11] MEDS ORDERED: METHOCARBAMOL500 MG PO (10:23)
[2019-05-11 10:31] VITALS: BP 133/68; Ht 165.1 cm; Wt 67.3 kg
[2019-05-11 10:54] LABS: BASOPHILS 0.3 % (0-2); EOSINOPHILS 1.4 % (0-7); HEMATOCRIT 40.1 % (36.0-48.0); HEMOGLOBIN 12.8 g/dL (12-16); IMMATURE GRANULOCYTES 0.2 % (0-5); LYMPHOCYTES 22.8 % (15-50); MCH 31.2 pg (26.0-34.0); MCHC 31.9 g/dL (31.0-37.0); MCV 97.8 fL (80.0-100.0); MEAN PLATELET VOLUME 9.2 fL (7.4-10.4); MONOCYTES 10.5 % (2-11); NEUTROPHILS 64.8 % (40-80); PLATELET COUNT 318 10x3/uL (130-400); RDW 13.9 % (11.5-14.5); WBC 6.3 10x3/uL (4.8-10.8)
[2019-05-11 11:01] LABS: ALT (SGPT) 31 U/L (10-68); CALC OSMOLALITY 278 mosm/kg (275-300); CALCIUM 9.1 mg/dL (8.5-10.1); CARBON DIOXIDE 27.1 mmol/L (21.0-32.0); CHLORIDE - SERUM 104 mmol/L (98-107); CHOL - HDL RATIO 2.3 ratio (2.3-4.1); CHOLESTEROL, TOTAL 176 mg/dL (0-200); CREATININE - SERUM 0.7 mg/dL (0.6-1.3); GLUCOSE 103 mg/dL (74-106); HDL CHOLESTEROL 77 mg/dL (32-96); LDL CHOLESTEROL 85 mg/dL (0-100); LDL-HDL RATIO 1.1 ratio (1.5-3.5); SODIUM 139 mmol/L (136-145); TRIGLYCERIDE 71 mg/dL (30-200); UREA NITROGEN 14 mg/dL (7-18); eGFR NON AFRICAN AMERICAN 89 mL/min (90-120)
[2019-05-11 11:02] LABS: POTASSIUM - SERUM 4.8 mmol/L (3.5-5.1)
--- NOTE | 2019-05-11 13:12 | NUR ---
PT ARRIVED BY STRETCHER. PLACED ON MONITORS. ASSESSMENT COMPLETED. VSS. CALL LIGHT WITHIN REACH. DR. PATEL CALLED PT'S CONTACT AND UPDATED HIM ON PT'S STATUS.
--- NOTE | 2019-05-11 13:27 | NUR ---
RIGHT WRIST Z BAND IN PLACE. NO BLEEDING/HEMATOMA NOTED. RESTING COMFORTABLY AT THIS TIME.
--- NOTE | 2019-05-11 13:57 | NUR ---
RIGHT WRIST Z BAND IN PLACE. NO BLEEDING/HEMATOMA NOTED. CALL LIGHT WITHIN REACH. PT RESTING COMFORTABLY. TOLERATING SIPS OF WATER. DENIES NAUSEA/VOMITING.
[2019-05-11] MEDS ORDERED: ISOSORBIDE MONO30 M1 PO (14:00)
--- NOTE | 2019-05-11 14:00 | NUR ---
2cc OF AIR REMOVED FROM Z BAND. NO BLEEDING/HEMATOMA NOTED.
--- NOTE | 2019-05-11 14:15 | NUR ---
2cc OF AIR REMOVED FROM Z BAND. NO BLEEDING/HEMATOMA NOTED. TOLERATING WELL.
--- NOTE | 2019-05-11 14:30 | NUR ---
3cc OF AIR REMOVED FROM Z BAND. NO BLEEDING/HEMATOMA NOTED. PT RESTING COMFORTABLY. VSS AT THIS TIME.
--- NOTE | 2019-05-11 14:58 | NUR ---
PIV D/C'D WITH CATH TIP INTACT. TOLERATED WELL. VSS. RIGHT WRIST Z BAND IN PLACE. NO BLEEDING/HEMATOMA NOTED. 2cc OF AIR REMOVED. PT INSTRUCTED TO GET UP AND DRESSED AT THIS TIME.
--- NOTE | 2019-05-11 15:00 | NUR ---
Z BAND REMOVED AND DRESSING APPLIED. NO HEMATOMA NOTED. RIGHT WRIST BRACE IN PLACE. PT AMBULATED TO RESTROOM. STEADY GAIT NOTED.
--- NOTE | 2019-05-11 15:15 | NUR ---
DISCUSSED DISCHARGE INSTRUCTIONS WITH PT. SHE VOICED UNDERSTANDING.
--- NOTE | 2019-05-11 15:30 | NUR ---
PT TAKEN DOWN TO VEHICLE BY WHEELCHAIR. NO S/S OF DISTRESS NOTED. ALL BELONGINGS AND PAPERWORK IN HAND. RIGHT WRIST DRESSING C/D/I. NO S/S OF HEMATOMA NOTED.
--- NOTE | 2019-05-13 09:52 | OP ---
PATIENT NAME: JOSE A LEON MEDICAL RECORD: [id number] :54 LOCATION:D.CAT ADMISSION DATE: SURGEON: JOSE J PATEL MD DATE OF OPERATION: 05/11/2019 PROCEDURES: 1. Left heart catheterization. 2. Selective coronary angiography. 3. Left ventriculogram. INDICATION: Angina, coronary artery disease, previous PTCA stent LAD. PROCEDURE IN DETAIL: After informed consent was obtained and after a detailed description of the risks, benefits as well as alternative therapies, the patient elected to proceed with angiogram and heart catheterization. The right radial area was prepped and draped in normal sterile fashion. Right radial artery was cannulated via modified Seldinger technique with placement of 5-Bengali sheath. All catheters exchanged through this sheath. FINDINGS: Left ventriculogram was performed in standard 30-degree NICHOLSON view, reveals good cardiac wall motion throughout all segments. Overall ejection fraction estimated 60%. SELECTIVE CORONARY ANGIOGRAPHY: 1. Left main is with no significant angiographic disease. 2. Left anterior descending has a previously placed stent that is widely patent with no significant restenosis. No disease elsewise throughout the LAD or its branches. 3. Left circumflex has mild irregularities, but no flow-limiting stenosis. 4. Right coronary has mild irregularities, but no flow-limiting stenosis. OVERALL IMPRESSION: Wide patency of the previously placed stent in the LAD. No disease elsewise. Continue medical management of the coronary artery disease and cardiac risk factors. TRANSINT:[id number] Voice Confirmation ID: [id number] DOCUMENT ID: [id number] JOSE J PATEL MD at 0952 CC: [id number] DICTATION DATE: 05/11/19 1259 SALES ANALYTICS MANAGER: 05/11/19 1315 DEP CLI 05/11/19 [id number] [place] [address]
== END 2019-05-11 15:30 ==
LOC: D.CATH 09:33
PROVIDERS: ATTEND Internal Medicine Interventional Cardiology
DX: I25.119 Atherosclerotic heart disease of native coronary artery with unspecified angina pectoris (principal); R06.02 Shortness of breath